=== PATIENT | male | born 1940 | race Caucasian/White ===

== ENCOUNTER 2016-11-10 08:49 | Day surgery (SDC) | payer MEDICARE, OTHER ==
[~2016-11-10] VITALS: Ht 188 cm; Wt 107.3 kg
[2016-11-10] VITALS (9 sets, daily range): BP systolic 100–135; BP diastolic 59–82; PULSE 80–94; RESP 12–18; O2SAT 94–98
[~2016-11-10 08:49] MED LIST: ACET-2605 PO; ASPI-973 PO; CHOL200025 PO; FENO160T14 PO; GLUC-207 PO; LATA2.5D5 OP; LUTE1CAP4 PO; Lactated Ringer's 1,000 ML IV SCH; MULT-1018 PO; OMEG300C3 PO; PEPS1TAB11 PO; SILD100T PO; UBID1CAP52 PO
[2016-11-10] MEDS ORDERED: Propofol 10,000 mCg/mL 20 mL Inj ONE (08:50)
[2016-11-10] MEDS ORDERED: fentaNYL-PF 50 mCg/mL 2 mL Inj ONE (08:50)
[2016-11-10] MEDS ORDERED: Dexamethasone 4 mg/mL Inj ONE (08:50)
[2016-11-10] MEDS ORDERED: Ondansetron 2 mg/mL 2 mL Inj ONE (08:50)
--- NOTE | 2016-11-10 09:27 | PCM.HPANE ---
Patient Data Surgeon Admitting Provider: Attending Provider:Susie Vidal MD Primary Care Physician:Osiel Vaughan MD Other Provider:Hope Ruffiningham Anesthesia Reason for Visit Hemorrhoids Ht/WT & BMI Height (Feet): 6 Height (Inches): 2 Weight (Kilograms): 107.32 Body Mass Index 30.00 Allergies Coded Allergies: No Known Drug Allergies (Verified Allergy, Unknown, 08/26/15) Past Anesthesia History Anesthesia History: Denies:: Abnormal Airway, Anesthesia Reactions, Difficult Intubation, Fam Anesthesia Reaction, Fam Malignant Hypertherm, Malignant Hyperthermia Diabetes History Hx Diabetes?: No MRSA MRSA: No Medications Blood Thinner: Aspirin Hypertension Medication: No Home Meds Incl Beta Errol: No Reported Medications Latanoprost (Xalatan)2.5 Ml Drops2.5 Ml OP DAILY 11/08/16 Cholecalciferol (Vitamin D3) (Vitamin D3)2,000 Unit Tablet2,000 Unit PO DAILY 11/08/16 Sildenafil Citrate (Viagra)100 Mg Unlbxt575 Mg PO UD PRN erectile dysfunction Ref 0 11/08/16 Acetaminophen/Diphenhydramine (Tylenol Pm Ex-Strength Caplet)500 Mg-25 Mg Tablet2 Each PO Q6H PRN For Pain 11/08/16 Lutein/Zeaxanthin (Lutein-Zeaxanthin 25-5 mg Sfgl)1 Each Capsule1 Each PO DAILY 11/08/16 Gluc/MSM/C/[place]/Manganese/[place] (Joint Support Complex Softgel)500-100 Mg Capsule1 Each PO DAILY 11/08/16 [place]-3 Fatty Acids (Fish Oil)300 Mg Cdiwphe888 Mg PO DAILY 11/08/16 Fenofibrate 160 Mg Uhwdfw806 Mg PO DAILY Ref 0 11/08/16 Pepsin/Marisa/Ox Bile/[place]/Bet/Pap (Enzymatic Digestant ER Tablet)1 Each Tablet.er1 Each PO DAILY 11/08/16 Multivitamin (Multi Vitamin Daily)1 Each Tablet1 Each PO DAILY 30 Days Ref 0 11/08/16 Ubidecarenone/Vit E Acetate (Co Q-10 100 mg Softgel)1 Each Capsule1 Each PO DAILY 11/08/16 Aspirin 81 Mg Anvknp87 Mg PO DAILY Ref 0 11/08/16 Discontinued Reported Medications Cholecalciferol (Vitamin D3) (Vitamin D)1,000 Unit Capsule2,000 Unit PO DAILY # 1 BOTTLE Ref 0 08/22/15 Acetaminophen (Extra Strength Non-Aspirin)500 Mg Qjrvir805-7,000 Mg PO Q6H PRN PRN 08/22/15 Multivitamin (Multi Vitamin Daily)1 Each Tablet1 Each PO DAILY 30 Days Ref 0 08/22/15 Aspirin 81 Mg Vkjnga42 Mg PO DAILY Ref 0 08/22/15 Latanoprost (Xalatan)2.5 Ml Drops1 Drop BOTH_EYES HS #1 BOTTLE Ref 0 06/24/14 Fenofibrate Nanocrystallized (Triglide)160 Mg Ccnrhq016 Mg PO DAILY 06/24/14 Lutein/Zeaxanthin (Lutein-Zeaxanthin 25-5 mg Sfgl)1 Each Capsule1 Each PO 06/24/14 [place]-3 Fatty Acids (Fish Oil)300 Mg Zgeywoo324 Mg PO DAILY 06/24/14 [Joint Support ] No Conflict Xpngc842 Mg PO DAILY 06/24/14 Ubidecarenone (Coenzyme Q10)100 Mg Oyeapfb665 Mg PO DAILY 06/24/14 Discontinued Scripts hydrOXYzine Hcl (HydrOXYzine Hcl)25 Mg Qpxccf70 Mg PO TID PRN For Spasm #30 TABLET Ref 0 Prov:Austin Zoe S DPM 08/26/15 oxyCODONE-Acetaminophen 5-325 mg 1 Each Tablet1-2 Tab PO Q6H PRN For Pain #30 TABLET Ref 0 Prov:Pea, Zoe S DPM 08/26/15 History History of ENT Problems?: Yes HEENT History: Positive for:: Cataracts (bilateral, macular degeneration) Glaucoma Denies:: Abnormal Airway Difficult Intubation Hearing Problem Hx of Heart Problems?: No Cardiovascular History: Denies:: AICD Abdominal Aortic Aneurism Atrial Fibrillation Cardiac Surgery Chest Pain Heart Murmur Hypertension Irregular Heartbeat Pacemaker Peripheral Vascular Rheumatic Fever Hx of Respiratory Problem?: No Respiratory History: Denies:: Asthma COPD Emphysema Oxygen Administration Pneumonia Tuberculosis Use of C-PAP Machine Use of Inhalers / NEBS Hx Neurologic Problems?: No Neurological History: Denies:: CVA Dizziness Headaches Multiple Sclerosis Parkinson's Disease Seizures TIA Hx of GI Problems?: Yes Gastrointestinal History: Positive for:: Rectal Bleeding (hemorrhoid current admission problem) Denies:: Cirrhosis Gall Bladder Disease Gastroesphageal Reflux Gastrointestinal Bleeding Heartburn Hepatitis Hiatal Hernia Liver Disease Hx of Problems?: No Genitourinary History: Denies:: Kidney Stones Urinary Tract Infection Male Hx: Denies:: Prostate Problems Scrotal Mass Testicular Surgery Skin History: Denies:: History Skin Disorders? 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 Denies:: Blood Transfusions Hx Diabetes: No Hx Alcohol Use: NoHx Substance Use: No Smoking Status: Smoker Current Status UNK Have You Smoked inLast 12 mo: No Stop/Bang S-Snoring: Do You Snore Loudly: Yes T-Tired: feel tired, fatigued: No O-Obsered: Observed not breath: No P-Blood Pressure: treated: No B- Body Mass Index > 35 kg/m2: No A- Age over 50: Yes N- Neck Large Circumference: No G- Gender Male: Yes CRISSY Total Score: 3 CRISSY Risk Assessment: High Risk, =/>3 Yes CRISSY Category 4 OutPt Procedure: Yes Risk Assessment Category Category 1A: Patient has history of documented sleep apnea, and HAS NOT received any narcotic, sedative or anesthesia administration during this stay. Category 1B: Patient has history of documented sleep apnea, and HAS received any narcotic , sedative or anesthesia administration during this stay Category 2: Patient has SUSPECTED Obstructive Sleep Apnea, and HAS received any narcotic , sedative or anesthesia administration during this stay. Category 3: Patient has SUSPECTED Obstructive Sleep Apnea and HAS NOT received narcotic, sedative or anesthesia administration during this stay. Category 4: Outpatient in Procedural Areas with known sleep apnea or who screen positive for High Risk via the STOP/BANG questionnaire. Exam Exam Vital Signs Vital Signs Date Time Temp Pulse Resp B/P Pulse Ox O2 Delivery O2 Flow Rate FiO2 11/10/16 09:21 36.6 84 18 134/75 96 Room Air General Appearance: Alert, Oriented X3, Cooperative, No Acute Distress HEENT/AIRWAY: MP 2 Lungs: Clear to Auscultation, Normal Air Movement Heart: Exam Unremarkable, Regular Rate/Rhythm, No Murmurs/Rubs/Gallops Plan Impression Patient chart reviewed, patient interviewed and anesthestic plan with risks, benefits, and alternatives discussed, and informed consent obtained. NPO Status: 1900 08/25/2015 ASA Physical Status: ASA2 Mod Systemic Disease (CRISSY risk) Anesthetic Plan: GA Bene/Risks/Altern/Consents: Yes HP Complete Prior to Induction: Yes Other Dr Lantigua performing anesthetic Yoshi Hammer MD Nov 10, 2016 09:27
[2016-11-10] MEDS ORDERED: Lactated Ringer's 1,000 ML IV ONE (09:35)
--- NOTE | 2016-11-10 14:28 | PCM.HPANE ---
Patient Data Surgeon Admitting Provider: Attending Provider:Susie Vidal MD Primary Care Physician:Osiel Vaughan MD Other Provider:Ashtyn Ruffin Anesthesia Reason for Visit Hemorrhoids Ht/WT & BMI Height (Feet): 6 Height (Inches): 2.00 Weight (Kilograms): 107.320 Body Mass Index 30.00 Allergies Coded Allergies: No Known Drug Allergies (Verified Allergy, Unknown, 08/26/15) Past Anesthesia History Anesthesia History: Denies:: Abnormal Airway, Anesthesia Reactions, Difficult Intubation, Fam Anesthesia Reaction, Fam Malignant Hypertherm, Malignant Hyperthermia Diabetes History Hx Diabetes?: No MRSA MRSA: No Medications Blood Thinner: Aspirin Hypertension Medication: No Home Meds Incl Beta Errol: No Reported Medications Latanoprost (Xalatan)2.5 Ml Drops2.5 Ml OP DAILY 11/08/16 Cholecalciferol (Vitamin D3) (Vitamin D3)2,000 Unit Tablet2,000 Unit PO DAILY 11/08/16 Sildenafil Citrate (Viagra)100 Mg Fsrtew859 Mg PO UD PRN erectile dysfunction Ref 0 11/08/16 Acetaminophen/Diphenhydramine (Tylenol Pm Ex-Strength Caplet)500 Mg-25 Mg Tablet2 Each PO Q6H PRN For Pain 11/08/16 Lutein/Zeaxanthin (Lutein-Zeaxanthin 25-5 mg Sfgl)1 Each Capsule1 Each PO DAILY 11/08/16 Gluc/MSM/C/[place]/Manganese/[place]aquelin (Joint Support Complex Softgel)500-100 Mg Capsule1 Each PO DAILY 11/08/16 [place]-3 Fatty Acids (Fish Oil)300 Mg Ywewqeo607 Mg PO DAILY 11/08/16 Fenofibrate 160 Mg Iaklma877 Mg PO DAILY Ref 0 11/08/16 Pepsin/Marisa/Ox Bile/[place]/Bet/Pap (Enzymatic Digestant ER Tablet)1 Each Tablet.er1 Each PO DAILY 11/08/16 Multivitamin (Multi Vitamin Daily)1 Each Tablet1 Each PO DAILY 30 Days Ref 0 11/08/16 Ubidecarenone/Vit E Acetate (Co Q-10 100 mg Softgel)1 Each Capsule1 Each PO DAILY 11/08/16 Aspirin 81 Mg Ozkqys24 Mg PO DAILY Ref 0 11/08/16 Discontinued Reported Medications Cholecalciferol (Vitamin D3) (Vitamin D)1,000 Unit Capsule2,000 Unit PO DAILY # 1 BOTTLE Ref 0 08/22/15 Acetaminophen (Extra Strength Non-Aspirin)500 Mg Swvzxr373-5,000 Mg PO Q6H PRN PRN 08/22/15 Multivitamin (Multi Vitamin Daily)1 Each Tablet1 Each PO DAILY 30 Days Ref 0 08/22/15 Aspirin 81 Mg Ptlbnr86 Mg PO DAILY Ref 0 08/22/15 Latanoprost (Xalatan)2.5 Ml Drops1 Drop BOTH_EYES HS #1 BOTTLE Ref 0 06/24/14 Fenofibrate Nanocrystallized (Triglide)160 Mg Qjazio043 Mg PO DAILY 06/24/14 Lutein/Zeaxanthin (Lutein-Zeaxanthin 25-5 mg Sfgl)1 Each Capsule1 Each PO 06/24/14 [place]-3 Fatty Acids (Fish Oil)300 Mg Rgqezjf275 Mg PO DAILY 06/24/14 [Joint Support ] No Conflict Fcikh619 Mg PO DAILY 06/24/14 Ubidecarenone (Coenzyme Q10)100 Mg Zugpufn546 Mg PO DAILY 06/24/14 Discontinued Scripts hydrOXYzine Hcl (HydrOXYzine Hcl)25 Mg Uqqamc17 Mg PO TID PRN For Spasm #30 TABLET Ref 0 Prov:Pea, Zoe S DPM 08/26/15 oxyCODONE-Acetaminophen 5-325 mg 1 Each Tablet1-2 Tab PO Q6H PRN For Pain #30 TABLET Ref 0 Prov:Pea, Zoe S DPM 08/26/15 History History of ENT Problems?: Yes HEENT History: Positive for:: Cataracts (bilateral, macular degeneration) Glaucoma Denies:: Abnormal Airway Difficult Intubation Hearing Problem Hx of Heart Problems?: No Cardiovascular History: Denies:: AICD Abdominal Aortic Aneurism Atrial Fibrillation Cardiac Surgery Chest Pain Heart Murmur Hypertension Irregular Heartbeat Pacemaker Peripheral Vascular Rheumatic Fever Hx of Respiratory Problem?: No Respiratory History: Denies:: Asthma COPD Emphysema Oxygen Administration Pneumonia Tuberculosis Use of C-PAP Machine Use of Inhalers / NEBS Hx Neurologic Problems?: No Neurological History: Denies:: CVA Dizziness Headaches Multiple Sclerosis Parkinson's Disease Seizures TIA Hx of GI Problems?: Yes Gastrointestinal History: Positive for:: Rectal Bleeding (hemorrhoid current admission problem) Denies:: Cirrhosis Gall Bladder Disease Gastroesphageal Reflux Gastrointestinal Bleeding Heartburn Hepatitis Hiatal Hernia Liver Disease Hx of Problems?: No Genitourinary History: Denies:: Kidney Stones Urinary Tract Infection Male Hx: Denies:: Prostate Problems Scrotal Mass Testicular Surgery Skin History: Denies:: History Skin Disorders? 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 Denies:: Blood Transfusions Hx Diabetes: No Hx Alcohol Use: NoHx Substance Use: No Smoking Status: Smoker Current Status UNK Have You Smoked inLast 12 mo: No Stop/Bang S-Snoring: Do You Snore Loudly: Yes T-Tired: feel tired, fatigued: No O-Obsered: Observed not breath: No P-Blood Pressure: treated: No B- Body Mass Index > 35 kg/m2: No A- Age over 50: Yes N- Neck Large Circumference: No G- Gender Male: Yes CRISSY Total Score: 3 CRISSY Risk Assessment: High Risk, =/>3 Yes CRISSY Category 4 OutPt Procedure: Yes Risk Assessment Category Category 1A: Patient has history of documented sleep apnea, and HAS NOT received any narcotic, sedative or anesthesia administration during this stay. Category 1B: Patient has history of documented sleep apnea, and HAS received any narcotic , sedative or anesthesia administration during this stay Category 2: Patient has SUSPECTED Obstructive Sleep Apnea, and HAS received any narcotic , sedative or anesthesia administration during this stay. Category 3: Patient has SUSPECTED Obstructive Sleep Apnea and HAS NOT received narcotic, sedative or anesthesia administration during this stay. Category 4: Outpatient in Procedural Areas with known sleep apnea or who screen positive for High Risk via the STOP/BANG questionnaire. High Risk, =/>3 Yes Exam Exam Vital Signs Vital Signs Date Time Temp Pulse Resp B/P Pulse Ox O2 Delivery O2 Flow Rate FiO2 11/10/16 09:21 36.6 84 18 134/75 96 Room Air General Appearance: Alert HEENT/AIRWAY: MP 1 Lungs: Clear to Auscultation Heart: Exam Unremarkable Meds/Labs/Diagnostics Admission Meds Current Medications Lactated Ringer's (Lr) 1,000 ml @ ud STK-MED ONCE IV Last administered on 11/10t 09:35; Start 11/10/16 at 09:35; Stop 11/10/16 at 09:36; Status DC Plan Impression Patient chart reviewed, patient interviewed and anesthestic plan with risks, benefits, and alternatives discussed, and informed consent obtained. NPO Status: 11/09@1830, black coffee 0700 ASA Physical Status: ASA2 Mod Systemic Disease Anesthetic Plan: GA Bene/Risks/Altern/Consents: Yes HP Complete Prior to Induction: Yes Darien Lantigua MD Nov 10, 2016 14:28
[2016-11-10] MEDS ORDERED: Lactated Ringer's 1,000 ML IV SCH (15:29)
[2016-11-10] MEDS ORDERED: Lactated Ringer's 500 ML IV PRN (15:29)
[2016-11-10] MEDS ORDERED: Bupivacaine 0.5%/EPI 50 mL Inj INFILTRATE ONE (15:29)
[2016-11-10] MEDS ORDERED: fentaNYL-PF 50 mCg/mL 2 mL Inj IVPUSH PRN (15:30)
[2016-11-10] MEDS ORDERED: Phenylephrine 10,000 mCg/mL Inj IVPUSH PRN (15:30)
[2016-11-10] MEDS ORDERED: MetoCLOpramide 5 mg/mL 2 mL Inj IVPUSH PRN (15:30)
[2016-11-10] MEDS ORDERED: Dexamethasone 4 mg/mL Inj IVPUSH PRN (15:30)
[2016-11-10] MEDS ORDERED: EPHEDrine Sulfate 50 mg/mL Inj IVPUSH PRN (15:30)
[2016-11-10] MEDS ORDERED: Ondansetron 2 mg/mL 2 mL Inj IVPUSH PRN (15:30)
[2016-11-10] MEDS ORDERED: HYDROmorphone 1 mg/mL Inj IVPUSH PRN (15:30)
[2016-11-10] MEDS ORDERED: Bupivacaine Liposome 1.3% 20 mL Inj ONE (15:35)
[2016-11-10] MEDS ORDERED: Bupivacaine Liposome 1.3% 20 mL Inj INFILTRATE ONE (15:39)
[2016-11-10] MEDS ORDERED: oxyCODONE-Acetamin 5-325 mg Tablet PO PRN (15:55)
--- NOTE | 2016-11-10 15:58 | PCM.ANEP1 ---
Post Anesthesia Phase 1 PACU Phase 1 Assessment Vital Signs Vital Signs Date Time Temp Pulse Resp B/P Pulse Ox O2 Delivery O2 Flow Rate FiO2 11/10/16 09:21 36.6 84 18 134/75 96 Room Air Anesthetic Administered: GA Level of Alertness: Awake, talking MEHTA's with Equal Strength: Yes Pain: No Nausea or Vomiting: No Oxygen Delivery: Simple Mask Lungs: Clear to Auscultation Dermatome Level: Full Sensation Summary T 36.7 100/59 P89 SAT 96% RR14 Darien Lantigua MD Nov 10, 2016 15:58
--- NOTE | 2016-11-10 20:11 | OP ---
[address] [address] OPERATIVE REPORT PATIENT: JACQUE RINCON : 1940 MR#: [id number] ADMIT: 11/10/2016 JOB ID: [id number] DATE OF SURGERY: 11/10/2016 SURGEON: Susie Vidal MD PREOPERATIVE DIAGNOSIS(ES): External hemorrhoids. POSTOPERATIVE DIAGNOSIS(ES): External hemorrhoids. PROCEDURE PERFORMED: External hemorrhoidectomy x3. BED BUG EXTERMINATOR: Arthur Rodriguez PA-C; Kathi Orozco MS3. HISTORY OF PRESENT ILLNESS: This is a 76-year-old man with a history of hemorrhoidal disease. On examination in the clinic, he had three external hemorrhoids which were bothersome to him, causing pain and difficulty with sanitation. He desired to have them resected. DESCRIPTION OF PROCEDURE: The patient was brought to the operating room and placed in supine position. General anesthesia was induced. A warming blanket was placed. He was repositioned in the high lithotomy position. The operative field was prepped and draped in sterile fashion. A pause was performed to further confirm the correct patient, procedure, and site. Anorectal examination was performed revealing the known external hemorrhoids as well as some small circumferential noninflamed internal hemorrhoids. There were no masses. The largest of the hemorrhoidal skin tags was external and in the midline anterior position. Two smaller skin tags were at nine o'clock and seven o'clock, with 12 o'clock being anterior, in lithotomy position. These three skin tags were each removed and the skin defect was closed using a running 2-0 chromic for the 12 o'clock and nine o'clock hemorrhoids and a 3-0 chromic for the seven o'clock hemorrhoid. Hemostasis was achieved. The anal sphincter was preserved. 30 mL of 0.5% Marcaine was injected around the anus, followed by 20 mL of liposomal bupivacaine, for postoperative analgesia. Antibiotic ointment was applied. The patient was awakened from general anesthesia and taken to the postoperative care unit in good condition. COMPLICATIONS: None. SPECIMENS: External hemorrhoids as noted above. ESTIMATED BLOOD LOSS: 2 mL.
--- NOTE | 2016-11-11 14:19 | PCM.ANEP2 ---
Post Anesthesia Evaluation ASA/CMS Post Anesthesia VS in Patient's Normal Range?: Yes Resp Stable; Airway Patent?: Yes CV Function & Hydration Stable: Yes Mental Status Recovered?: Yes Pain control Satisfactory?: Yes N/V Control Satisfactory?: Yes Darien Lantigua MD Nov 11, 2016 14:19
--- NOTE | 2016-11-12 14:29 | PATH ---
SURGICAL PATHOLOGY Attending Physician:Susie Vidal MD CASE STATUS: Signed Out PATIENT NAME: JACQUE RINCON PID: [id number] : 1940 DATE COLLECTED:11/10/2016 22:04 SPECIMEN: Hemorrhoids CLINICAL HISTORY: HEMORRHOIDS 1). EXTERNAL HEMORRHOIDS x 3 FINAL DIAGNOSIS: 1.HEMORRHOIDS: EXTERNAL HEMORRHOIDS, NEGATIVE FOR ATYPIA. ICD10 CODE K64 GROSS DESCRIPTION: The specimen is received in one formalin filled container labeled with the patient's name, sublabeled "hemorrhoids" and consists of 3 pink perez portions of tissue which aggregate to 3.0 x 2.0 x 1.0 CM. The specimen is inked blue. 4 hr representative sections are submitted in one cassette. 11/10/2016 [facility] MICRO DESCRIPTION: See diagnosis. ICD-9 CODES: CPT CODES: 1: 84283 Electronically Signed Out Mesfin Francisco MD [facility] Pathology [facility] [address] [facility], [place] [address] Technical component performed at [facility], [facility] [address], [place], [address]
== END 2016-11-10 23:59 | disposition home or self-care (01) ==
LOC: SAS 08:49
PROVIDERS: ATTEND Surgery
DX: K64.4 Residual hemorrhoidal skin tags (principal); R03.0 Elevated blood-pressure reading, without diagnosis of hypertension; R73.01 Impaired fasting glucose
CPT/HCPCS: 46250; 88304; J1100; J2250; J2405; J3010; J7120